=== PATIENT | female | born 1985 | race Caucasian/White ===

== ENCOUNTER 2019-04-26 11:11 | Emergency (ER) | payer MEDICAID, SELFPAY ==
[2019-04-26] MEDS ORDERED: Neomycin-Polymyxin-Hc 7.5 ML BOT ONE (11:24)
== END 2019-04-26 12:07 | disposition home or self-care (01) ==
LOC: BURERS 11:11
DX: H60.93 Unspecified otitis externa, bilateral (principal); F31.9 Bipolar disorder, unspecified; F43.10 Post-traumatic stress disorder, unspecified; F17.210 Nicotine dependence, cigarettes, uncomplicated
CPT/HCPCS: 99282

== ENCOUNTER 2019-05-12 18:34 | Inpatient (IN) | payer SELFPAY ==
[2019-05-12 19:19] LABS: #Basophils 0.2 thou/uL (0.0-0.2); #Eosinphils 0.1 thou/uL (0.0-0.7); #Monocytes 0.7 thou/uL (0.11-0.59); #Neutrophils 9.8 thou/uL (1.40-6.50); %Basophils 1.5 % (0.0-1.0); %Lymphocytes 8.2 % (21.0-51.0); %Monocytes 5.9 % (0.0-10.0); %Neutrophils 83.5 % (42.0-75.0); Hemoglobin 11.2 g/dL (12.0-16.0); Mean Corpuscular HGB CONC 31.9 g/dL (32.0-36.0); Mean Corpuscular Volume 87.7 fL (78.0-98.0); Mean Platelet Volume 5.9 fL (7.4-10.4); Platelet Count 327 thou/uL (130-400); RBC Distribution Width 13.7 % (11.5-14.5); Red Blood Cell (RBC) Count 4.01 mill/uL (4.20-5.40); White Blood Cell (WBC) Count 11.7 thou/uL (4.8-10.8)
[2019-05-12] MEDS ORDERED: cefTRIAXone\\ROCEPHIN 2 GM VIAL ONE (19:23)
[2019-05-12] MEDS ORDERED: Ibuprofen 800 MG TAB ONE (19:23)
[2019-05-12] MEDS ORDERED: Ondansetron PF 4 MG/2 ML Vial ONE (19:23)
--- NOTE | 2019-05-12 19:26 | RAD ---
RADIOGRAPH CHEST 1 VIEW: DATE: 05/12/2019 HISTORY: 34-year-old female with sepsis FINDINGS: The visualized lung tomlinson are clear. The cardiomediastinal silhouette and hilar shadows are normal. The lateral costophrenic angles are sharp. The osseous structures appear normal. There is no pneumothorax. IMPRESSION: Negative.
[2019-05-12 19:33] LABS: ALT (SGPT) 13 U/L (8-55); AST (SGOT) 14 U/L (5-34); Albumin 3.5 g/dL (3.5-5.0); Alkaline Phosphatase 69 U/L (40-110); Anion Gap 17 mmol/L (10-20); BUN (Urea Nitrogen) 7 mg/dL (7.0-18.7); Bilirubin, Total 0.3 mg/dL (0.2-1.2); Calc. Creatinine Clearance 0 mL/min (70-130); Calcium 8.2 mg/dL (7.8-10.44); Carbon Dioxide 22 mmol/L (22-29); Chloride 97 mmol/L (98-107); Estimated GFR-MDRD Greater than 90; Globulin 3.8 g/dL (2.4-3.5); Glucose 121 mg/dL (70-105); Protein, Total 7.3 g/dL (6.0-8.3); Sodium 132 mmol/L (136-145)
[2019-05-12 19:44] LABS: Bilirubin Negative (Negative); Blood, Urine Negative (Negative); Clarity Cloudy (Clear); Glucose, Urine (Dipstick) Negative (Negative); Leukocyte Small (Negative); Nitrite Negative (Negative); Protein, Urine (Dipstick) 100 mg/dL (Neg-Trace)
[2019-05-12 19:45] LABS: Pregnancy Test - Urine (BHCG) Negative (Negative); Pregu Control Background? CLEAR/WHITE (CLR/WHITE); Pregu Control Bar Appear? YES (CONTROL BAR)
[2019-05-12 19:50] LABS: Bacteria/HPF 2+ HPF (None Seen); Broad Cast None Seen LPF (None Seen); Calcium Oxalate Crystals None Seen HPF (None Seen); Cellular Cast None Seen LPF (None Seen); Epithelial Cast None Seen LPF (None Seen); Fatty Cast None Seen LPF (None Seen); Mucous/LPF 2+ LPF (<2+); Other Casts None Seen LPF (None Seen); Oval Fat Bodies/HPF None Seen HPF (None Seen); RBC/HPF None Seen HPF (0-3); Red Blood Cell Cast None Seen LPF (None Seen); Renal Epithelial None Seen HPF (None Seen); Sperm/HPF None Seen HPF (None Seen); Transitional Epithelial None Seen HPF (None Seen); Trichomonas/HPF None Seen HPF (None Seen); Triple Phosphate Crystal None Seen HPF (None Seen); Unclassified Crystals None Seen HPF (None Seen); WBC/HPF 21-50 HPF (0-3); Waxy Cast None Seen LPF (None Seen); White Blood Cell Cast None Seen LPF (None Seen); Yeast-Budding None Seen HPF (None Seen); Yeast-Hyphae None Seen HPF (None Seen)
[2019-05-12] MEDS ORDERED: Acetaminophen 500 MG TAB ONE (20:32)
[2019-05-12 21:11] VITALS: BMI 17.9
[2019-05-12] MEDS ORDERED: Ondansetron ODT 4 MG TAB SL PRN (21:36)
[2019-05-12] MEDS ORDERED: Ondansetron PF 4 MG/2 ML Vial IVP PRN (21:36)
[2019-05-12 21:41] LABS: Lactic Acid 0.7 mmol/L (0.5-2.2)
[2019-05-12] MEDS: Sodium Chloride 0.9% 1,000 ML IV SCH (21:45)
[2019-05-12] MEDS: Ibuprofen 800 MG TAB PO PRN (22:55)
[2019-05-13 04:42] LABS: Anion Gap 11 mmol/L (10-20); BUN (Urea Nitrogen) Less than 4 mg/dL (7.0-18.7); Calc. Creatinine Clearance 104 mL/min (70-130); Calcium 7.4 mg/dL (7.8-10.44); Carbon Dioxide 22 mmol/L (22-29); Chloride 111 mmol/L (98-107); Estimated GFR-MDRD Greater than 90; Glucose 104 mg/dL (70-105); Potassium 3.4 mmol/L (3.5-5.1); Sodium 141 mmol/L (136-145)
[2019-05-13 04:57] LABS: #Basophils 0.1 thou/uL (0.0-0.2); #Eosinphils 0.2 thou/uL (0.0-0.7); #Lymphocytes 1.6 thou/uL (1.20-3.40); #Monocytes 0.8 thou/uL (0.11-0.59); #Neutrophils 8.6 thou/uL (1.40-6.50); %Basophils 1.1 % (0.0-1.0); %Eosinophils 1.5 % (0.0-10.0); %Lymphocytes 14.6 % (21.0-51.0); %Monocytes 6.7 % (0.0-10.0); %Neutrophils 76.1 % (42.0-75.0); Hemoglobin 10.4 g/dL (12.0-16.0); Mean Corpuscular HGB CONC 33.7 g/dL (32.0-36.0); Mean Corpuscular Hemoglobin 28.9 pg (27.0-31.0); Mean Corpuscular Volume 85.8 fL (78.0-98.0); Mean Platelet Volume 5.7 fL (7.4-10.4); Platelet Count 302 thou/uL (130-400); RBC Distribution Width 13.4 % (11.5-14.5); Red Blood Cell (RBC) Count 3.58 mill/uL (4.20-5.40); White Blood Cell (WBC) Count 11.2 thou/uL (4.8-10.8)
[2019-05-13] MEDS: Ibuprofen 800 MG TAB PO PRN ×2 (06:47→16:16)
[2019-05-13] MEDS: Sodium Chloride 0.9% 1,000 ML IV SCH ×2 (07:27→17:27)
[2019-05-13] MEDS: Acetaminophen 325 MG TAB PO PRN ×2 (09:15→20:44)
[2019-05-13] MEDS: HYDROcodone/Acetaminophen 5/325 mg Tablet PO PRN (12:36)
[2019-05-13] MEDS ORDERED: Ketorolac Tromethamine 30 MG/ML VIAL ONE (18:36)
[2019-05-13] MEDS: Ketorolac Tromethamine 30 MG/ML VIAL IVP PRN (18:39)
[2019-05-13] MEDS: cefTRIAXone\\ROCEPHIN 2 GM in Sodium Chloride 0.9% 100 ML IVPB SCH (20:43)
[2019-05-13] MEDS: Triple Antibiotic Oint 1 GM Packet TOP SCH (20:44)
[2019-05-13] MEDS ORDERED: FLU VACC QS2019-20(6MOS UP)/PF 60 MCG/0.5 ML SYRINGE IM ONE (21:00)
--- NOTE | 2019-05-14 01:46 | HP ---
PRIMARY CARE PHYSICIAN: None. CHIEF COMPLAINT: High-grade fever with left flank pain. HISTORY OF PRESENT ILLNESS: Ms. Rossi is a 34-year-old female, with bipolar disorder, IV drug use, and chronic headaches, presented to ED on 2018, complaining of 3 days of not feeling well with headaches and left-sided flank pain. The patient reported prior to admission she spiked high grade fever. Upon arrival at the ED, her temperature was 102.6, pulse rate was 114, blood pressure 135/90. Initial labs showed WBC of 11, hemoglobin of 11.2, hematocrit of 35, platelet count of 327 with predominance of neutrophils. Comprehensive metabolic panel showed sodium of 132, potassium of 4, chloride of 97, creatinine of 0.69, GFR of 90, glucose of 121, AST of 14, ALT of 13, lactic acid of 2.8. Urinalysis showed urine wbc's of 7-10, urine rbc's of 21-50 with 2+ bacteria. The patient was given IV fluids, vancomycin of 25 mg/kg, Rocephin 2 g per IV, and Zofran. The patient admitted that a week prior, her uncle was treating her with methamphetamine and 3 days prior was smoking marijuana. She has not been back to see [facility], she used to take trazodone, Seroquel, and antidepressant. She moved from [place] and is now staying with grandmother here in [place]. The patient is meeting criteria for admission for pyelonephritis with systemic symptoms. This morning she is complaining of headaches and left flank pain, not improved with Tylenol and Motrin, she was given [place] 5 mg and was able to sleep only for 2 hours. PAST MEDICAL HISTORY: 1. Bipolar disorder. 2. Chronic headaches. 3. IV drug use with recent use of methamphetamine. 4. Cigarette smoker. PAST SURGICAL HISTORY: Bilateral tubal ligation. ALLERGIES: ZOLOFT. SOCIAL HISTORY: Smokes a pack every 3 days, she is a drug user. MEDICATIONS: None. REVIEW OF SYSTEMS: Positive for fever. Positive for fatigue. Positive for chills. Positive for decreased appetite. PHYSICAL EXAMINATION: HEENT: Negative for blurred vision. Positive for crusty, pruritic lesions on both ears. RESPIRATORY: Negative for shortness of breath. Negative for cough. CARDIAC: Negative for chest pain. Negative for edema. GI: Positive for decreased appetite. Negative for nausea, vomiting, or diarrhea. Negative for constipation. GENITOURINARY: Positive for frequency, positive for left flank pain. Negative for hematuria. PSYCH: Positive for depression, positive for anxiety. NEUROLOGIC: Negative for weakness or numbness. PHYSICAL EXAMINATION: VITAL SIGNS: Blood pressure 118/83, temperature of 97.8, pulse of 83, R of 20, O2 saturation 98% on room air. GENERAL: The patient is alert, oriented, in mild respiratory distress secondary to headaches and left-sided flank pain. HEENT: Normocephalic, atraumatic. Pupils equally reactive to light. Negative for tonsillopharyngeal congestion. Bilateral external auditory canals showed erythematous crusting lesions, no discharge, negative for swelling, negative for tenderness. NECK: Supple. Negative for lymphadenopathy. CHEST AND LUNGS: Symmetrical expansion, clear breath sounds. HEART: Regular rate and rhythm. Negative for murmur, rubs, or gallops. ABDOMEN: Flat, soft, nontender. Normoactive bowel sounds. Positive for left- sided flank tenderness. EXTREMITIES: Negative for clubbing or cyanosis. Negative for Homans signs. PSYCH: No homicidal or suicidal ideation, appears exaggerating with her symptoms. LABORATORY DATA: CBC; hemoglobin of 10, hematocrit of 30, WBC of 11, platelet count of 302, with predominance of neutrophils of 76. BMP; sodium of 141, potassium of 3.4, chloride of 111, BUN less than 4, creatinine of 0.58, GFR of 90, lactic acid of 0.7, calcium of 7.4. Urine and blood culture are both pending. ASSESSMENT: 1. A 34-year-old white female with left-sided pyelonephritis. 2. IV drug use. 3. Chronic headaches. 4. Cigarette smoker. PLAN: 1. The patient is receiving Rocephin 2 g per IV every 24 hours. Continue Tylenol, NSAIDs, and p.r.n. [place] for pain. 2. Pending urine and blood cultures. We will order morning labs. Likely discharge to home within the next 2 days if all cultures are negative. Job ID: [id number] [facility]
[2019-05-14] MEDS ORDERED: Ketorolac Tromethamine 30 MG/ML VIAL ONE ×3 (03:05→18:24)
[2019-05-14] MEDS: Ketorolac Tromethamine 30 MG/ML VIAL IVP PRN ×3 (03:12→18:28)
[2019-05-14] MEDS: Sodium Chloride 0.9% 1,000 ML IV SCH ×2 (04:47→14:32)
[2019-05-14 05:19] LABS: Anion Gap 11 mmol/L (10-20); BUN (Urea Nitrogen) 5 mg/dL (7.0-18.7); Calc. Creatinine Clearance 114 mL/min (70-130); Calcium 7.5 mg/dL (7.8-10.44); Carbon Dioxide 23 mmol/L (22-29); Chloride 111 mmol/L (98-107); Estimated GFR-MDRD Greater than 90; Glucose 102 mg/dL (70-105); Potassium 3.5 mmol/L (3.5-5.1); Sodium 141 mmol/L (136-145)
[2019-05-14 05:21] LABS: #Basophils 0.1 thou/uL (0.0-0.2); #Eosinphils 0.5 thou/uL (0.0-0.7); #Lymphocytes 1.4 thou/uL (1.20-3.40); #Monocytes 0.8 thou/uL (0.11-0.59); #Neutrophils 9.9 thou/uL (1.40-6.50); %Lymphocytes 11.2 % (21.0-51.0); %Monocytes 6.6 % (0.0-10.0); %Neutrophils 77.2 % (42.0-75.0); Hemoglobin 9.9 g/dL (12.0-16.0); Mean Corpuscular HGB CONC 31.2 g/dL (32.0-36.0); Mean Corpuscular Volume 86.7 fL (78.0-98.0); Mean Platelet Volume 5.8 fL (7.4-10.4); Platelet Count 329 thou/uL (130-400); RBC Distribution Width 13.8 % (11.5-14.5); Red Blood Cell (RBC) Count 3.64 mill/uL (4.20-5.40); White Blood Cell (WBC) Count 12.8 thou/uL (4.8-10.8)
[2019-05-14] MEDS: HYDROcodone/Acetaminophen 5/325 mg Tablet PO PRN (07:46)
[2019-05-14] MEDS: Triple Antibiotic Oint 1 GM Packet TOP SCH ×2 (07:47→15:29)
[2019-05-14] MEDS ORDERED: Polyethylene Glycol 3350 17 GM Packet PO PRN (09:28)
[2019-05-14] MEDS: Acetaminophen 325 MG TAB PO PRN (11:57)
[2019-05-14] MEDS: cefTRIAXone\\ROCEPHIN 2 GM in Sodium Chloride 0.9% 100 ML IVPB SCH (18:31)
[2019-05-14 20:05] VITALS: BP 115/66; TEMP 98.6
--- NOTE | 2019-05-14 20:47 | DIS ---
DATE OF ADMISSION: 05/12/2019 DATE OF DISCHARGE: 05/14/2019 DISCHARGE DIAGNOSES: 1. Acute sepsis. 2. Left pyelonephritis. 3. IV drug use. 4. Chronic headaches. 5. Cigarette smoker. HISTORY OF PRESENT ILLNESS/COURSE IN THE BROWN: Ms. Muniz is a 34-year-old female with bipolar disorder, IV drug use, and chronic headaches, presented to ED on 05/12/2019 complaining of three days of not feeling well with headaches and left-sided flank pain. Prior to admission, she spiked high-grade fever. Upon arrival at the ED, her temperature was 102.6, pulse rate was 114, and blood pressure of 135/90. Her WBC was 11, hemoglobin of 11, hematocrit of 35, and platelet count of 327. She had a predominance of neutrophils. She had a lactic acid of 2.8. Urinalysis showed wbc of 7 to 10, urine rbc of 21 to 50 with 2+ bacteria, she was admitted for UTI with sepsis, she was given Rocephin 2 g and vancomycin and received fluid repletion. During her hospital stay, patient was medicated with Tylenol, Motrin, and subsequently placed on [place] 5 mg every 6 hours for left-sided flank pain and headaches. Toradol was also initiated to control her pain. Urine culture showed E coli pansensitive, reevaluation of patient noted that her vital signs were stable, she is afebrile, she verbalized wanting to go home and manage her condition at home. DISPOSITION: DC to home. CONDITION: Stable. ACTIVITY: Ad bibiana. DIET: Regular. MEDICATION: 1. Bactrim DS one tab p.o. b.i.d. for 10 days. 2. Ibuprofen 400 to 800 mg one tablet every 8 hours p.r.n. for pain over the counter. DISCHARGE INSTRUCTIONS: Patient is advised to follow up with [facility] within 7 days. Patient verbalized understanding. Job ID: [id number]
[2019-05-14] MEDS ORDERED: Docusate 100 MG CAP PO SCH (21:00)
== END 2019-05-14 19:55 | disposition home or self-care (01) | DRG 872 ==
LOC: BURERS 18:34 → BURMED 20:26
PROVIDERS: ADMIT Family Medicine; ATTEND Family Medicine
DX: A41.9 Sepsis, unspecified organism (principal); N12 Tubulo-interstitial nephritis, not specified as acute or chronic; F17.210 Nicotine dependence, cigarettes, uncomplicated; R51 Headache; F31.9 Bipolar disorder, unspecified; Z98.51 Tubal ligation status; F15.10 Other stimulant abuse, uncomplicated; Z88.8 Allergy status to other drugs, medicaments and biological substances; F43.10 Post-traumatic stress disorder, unspecified; F12.10 Cannabis abuse, uncomplicated; R40.2432 Glasgow coma scale score 3-8, at arrival to emergency department
CPT/HCPCS: 36415; 71045; 80048; 80053; 81003; 81015; 81025; 83605; 85025; 87040; 87077; 87086; 87186; 96360; 96365; 96375; J0696; J1885; J2405; J3370; J3490; J7050

== ENCOUNTER 2022-01-19 17:00 | Emergency (ER) | payer SELFPAY ==
[2022-01-19] MEDS ORDERED: Ondansetron ODT 4 MG TAB ONE (17:41)
== END 2022-01-19 17:43 | disposition home or self-care (01) ==
LOC: BURERS 17:00
DX: A08.4 Viral intestinal infection, unspecified (principal); F17.210 Nicotine dependence, cigarettes, uncomplicated
CPT/HCPCS: 99283; Q0162

== ENCOUNTER 2022-02-16 02:42 | Emergency (ER) | payer OTHER, SELFPAY ==
[2022-02-16] MEDS ORDERED: Promethazine 25 MG TAB ONE (03:05)
== END 2022-02-16 03:11 | disposition home or self-care (01) ==
LOC: BURERS 02:42
DX: S00.03XA Contusion of scalp, initial encounter (principal); F17.210 Nicotine dependence, cigarettes, uncomplicated; F17.290 Nicotine dependence, other tobacco product, uncomplicated; W22.8XXA Striking against or struck by other objects, initial encounter
CPT/HCPCS: 99283; Q0169

== ENCOUNTER 2022-07-17 18:17 | Emergency (ER) | payer OTHER, SELFPAY ==
[2022-07-17] MEDS ORDERED: Ibuprofen 200 MG TAB ONE (18:53)
== END 2022-07-17 19:00 | disposition home or self-care (01) ==
LOC: BURERS 18:17
DX: S39.012A Strain of muscle, fascia and tendon of lower back, initial encounter (principal); S13.4XXA Sprain of ligaments of cervical spine, initial encounter; F17.210 Nicotine dependence, cigarettes, uncomplicated; V44.5XXA Car driver injured in collision with heavy transport vehicle or bus in traffic accident, initial encounter
CPT/HCPCS: 99283

== ENCOUNTER 2022-07-27 17:20 | Emergency (ER) | payer OTHER, SELFPAY ==
[2022-07-27] MEDS ORDERED: HYDROcodone/Acetaminophen 5/325 mg Tablet ONE (18:08)
== END 2022-07-27 19:29 | disposition home or self-care (01) ==
LOC: BURERS 17:20
DX: M54.6 Pain in thoracic spine (principal); F17.210 Nicotine dependence, cigarettes, uncomplicated
CPT/HCPCS: 71045; 93005

== ENCOUNTER 2023-05-03 16:33 | Emergency (ER) | payer OTHER | END 2023-05-03 17:28 | disposition home or self-care (01) | LOC: BURERS 16:33 | DX: J11.1 Influenza due to unidentified influenza virus with other respiratory manifestations (principal); F17.210 Nicotine dependence, cigarettes, uncomplicated | CPT/HCPCS: 99283 ==